=== PATIENT | female | born 1985 | race Native Hawaiian/Other Pacific Islander ===

== ENCOUNTER 2018-03-12 06:31 | Emergency (ER) | payer BC ==
[~2018-03-12] VITALS: Ht 170.2 cm; Wt 136.1 kg
[2018-03-12 06:38] VITALS: Ht 170.2 cm; Wt 136.1 kg
[2018-03-12 08:09] VITALS: BP 147/59
== END 2018-03-12 08:09 | disposition home or self-care (01) ==
LOC: ED 06:31
DX: S46.911A Strain of unspecified muscle, fascia and tendon at shoulder and upper arm level, right arm, initial encounter (principal); M54.10 Radiculopathy, site unspecified; X58.XXXA Exposure to other specified factors, initial encounter; Y93.89 Activity, other specified; Y92.89 Other specified places as the place of occurrence of the external cause; Y99.8 Other external cause status
CPT/HCPCS: J1885